=== PATIENT | female | born 1980 | race Caucasian/White ===

== ENCOUNTER 2017-08-12 22:36 | Emergency (ER) | payer BC ==
[2017-08-12] MEDS ORDERED: SODIUM CHLORIDE 0.9% 1,000 ML IV STA ×2 (23:29)
[2017-08-12] MEDS ORDERED: ONDANSETRON 4 MG/2 ML VIAL IVP STA (23:29)
[2017-08-12] MEDS ORDERED: RX INFO: IV CONTRAST WAS GIVEN 1 EACH MISC MISCELLANE PRN (23:29)
[2017-08-12] MEDS ORDERED: MORPHINE SULFATE 4 MG/ML SYRINGE IVP STA (23:32)
[2017-08-13 00:14] LABS: Basophils % (A) 0 %; Eosinophils % (A) 0 %; HCT 39.8 % (34.0-46.0); HGB 13.9 gm/dL (11.4-16.0); Lymphocytes # (A) 1.1 k/uL (1.0-4.8); Lymphocytes % (A) 11 %; MCH 31.1 pg (25.0-35.0); MCV 88.7 fL (80.0-100.0); Mean Platelet Volume 7.4; Monocytes # (A) 0.5 k/uL (0-1.0); Monocytes % (A) 5 %; Neutrophils # (A) 8.9 k/uL (1.3-7.7); Neutrophils % (A) 84 %; Platelet Count 301 k/uL (150-450); RBC 4.48 m/uL (3.80-5.40); RDW 12.6 % (11.5-15.5); WBC 10.6 k/uL (3.8-10.6)
[2017-08-13 00:19] LABS: Appearance,Urine Clear (Clear); Bilirubin,Urine Negative (Negative); Blood,Urine Trace (Negative); Color,Urine Colorless; Glucose,Urine (UA) Negative (Negative); Ketones,Urine Negative (Negative); Leukocyte Esterase,Urine Negative (Negative); Nitrite,Urine Negative (Negative); PH, Urine 5.5 (5.0-8.0); Protein,Urine Negative (Negative); Specific Gravity,Urine 1.001 (1.001-1.035); Urobilinogen,Urine <2.0 mg/dL (<2.0)
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
[2017-08-13 00:26] LABS: Partial Thromboplastin Time 23.2 sec (22.0-30.0); Prothrombin Time 9.9 sec (9.0-12.0)
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
[2017-08-13 01:13] LABS: ALT 34 U/L (9-52); AST 28 U/L (14-36); Albumin 4.2 g/dL (3.5-5.0); Alcohol 27 mg/dL; Alkaline Phosphatase 50 U/L (38-126); Anion Gap 13 mmol/L; Blood Urea Nitrogen 8 mg/dL (7-17); Calcium 9.4 mg/dL (8.4-10.2); Carbon Dioxide 25 mmol/L (22-30); Chloride 104 mmol/L (98-107); Glucose 89 mg/dL (74-99); Potassium 3.7 mmol/L (3.5-5.1); Sodium 142 mmol/L (137-145); Total Bilirubin 0.3 mg/dL (0.2-1.3); Total Protein 6.7 g/dL (6.3-8.2)
[2017-08-13 02:40] VITALS: BP 130/77; PULSE 71; RESP 16; TEMP 97.4
== END 2017-08-13 02:40 | disposition home or self-care (01) ==
LOC: EC 22:36
DX: S30.1XXA Contusion of abdominal wall, initial encounter (principal); F41.9 Anxiety disorder, unspecified; F32.9 Major depressive disorder, single episode, unspecified; F17.200 Nicotine dependence, unspecified, uncomplicated; Z79.899 Other long term (current) drug therapy; W28.XXXA Contact with powered lawn mower, initial encounter; Y93.89 Activity, other specified
CPT/HCPCS: 36415; 80053; 83605; 84484; 85025; 85610; 85730; 81001; 81025; 80320; 72170; 71046; 74177; 99284; 96374; 96375; 96361 ×2; J2270; J2405; Q9967

== ENCOUNTER → 2021-09-07 | Outpatient (CLI) | payer BC ==
--- NOTE | 2021-09-10 13:46 | MM ---
Reason for Exam: Screening (asymptomatic). Baseline mammogram. Patient History: Menarche at age 13. First Full-Term at age 25. Last menstrual period: 09/04/2021 Risk Values: Blessing 5 year model risk: 0.6%. NCI Lifetime model risk: 11.1%. Prior Study Comparison: Patient's first Mammogram. Tissue Density: The breast tissue is heterogeneously dense. This may lower the sensitivity of mammography. Findings: Analyzed By CAD. A few benign necrosis calcifications in both sides. There is underlying nodularity, at least 3 areas on the right measuring up to 1.4 cm and one dominant area centrally in the left breast measuring up to 1.9 cm. These appear to be partially circumscribed and partially obscured even on the 3-D images due to the dense tissues. Further ultrasound evaluation is recommended. Overall Assessment: Incomplete: need additional imaging evaluation, BI-RAD 0 Management: Diagnostic Breast Ultrasound of both breasts. Bilateral whole breast ultrasound for suspected underlying cysts or fibroadenomas measuring up to 1.9 cm. Electronically signed and approved by: Nick Page M.D. Radiologist
== END | disposition home or self-care (01) ==
LOC: RADMAMWWP 11:15
PROVIDERS: ATTEND Obstetrics & Gynecology
DX: Z12.31 Encounter for screening mammogram for malignant neoplasm of breast (principal); R92.1 Mammographic calcification found on diagnostic imaging of breast
CPT/HCPCS: 77063; 77067

== ENCOUNTER → 2021-09-14 | Outpatient (CLI) | payer BC ==
--- NOTE | 2021-09-14 14:02 | USB ---
Reason for Exam: Additional evaluation requested from abnormal screening. Patient History: Menarche at age 13. First Full-Term at age 25. Risk Values: Blessing 5 year model risk: 0.6%. NCI Lifetime model risk: 11.1%. Technique: Method: Whole Breast Handheld. Prior Study Comparison: 09/07/2021 Bilateral MG 3D screening mammo w/cad, [facility]. Findings: The whole breast of both breasts, the axilla of both breasts and the retroareolar of both breasts were scanned. Simple appearing cysts are present bilaterally. The largest on the left measures 1.8 x 1.1 x 1.7 cm. The largest on the right measures 3.0 x 3.1 x 1.4 cm.. Overall Assessment: Benign, BI-RAD 2 Management: Screening Mammogram of both breasts in 1 year. A clinical breast exam by your physician is recommended on an annual basis and results should be correlated with mammographic findings. Electronically signed and approved by: Jem Wolf D.O. Radiologis
== END | disposition home or self-care (01) ==
LOC: RADUSWWP 13:22
PROVIDERS: ATTEND Obstetrics & Gynecology
DX: R92.8 Other abnormal and inconclusive findings on diagnostic imaging of breast (principal)